=== PATIENT | female | born 1945 | race Caucasian/White ===

== ENCOUNTER 2017-06-03 23:57 | Emergency (ER) | payer MEDICARE, BC ==
[~2017-06-03] VITALS: Ht 165.1 cm; Wt 154.2 kg
[2017-06-04] MEDS ORDERED: NORCO 5-325 TA1 EACH PO (01:45)
[2017-06-04] MEDS ORDERED: LASIX20 MG PO (02:02)
[2017-06-04] MEDS ORDERED: POTASSIUM CHLO10 MEQ PO (02:02)
[2017-06-04] MEDS ORDERED: CYCLOBENZAPRINE10 MG PO (02:02)
--- NOTE | 2017-06-04 07:32 | EKG ---
[facility] [address] [facility] [place] [address] Signed Normal sinus rhythm Nonspecific ST and T wave abnormality Abnormal ECG No previous ECGs available Confirmed by KOKO PICKENS MD ([id number]) on 06/04/2017 7:32:49 AM Electronically Signed By: KOKO PICKENS MD 06/04/17 0732 PATIENT NAME: GOPAL TERRY Electrocardiogram DATE OF : 47 PHYSICIAN: KOKO PICKENS MD REPORT #: [id number] REPORT IS CONFIDENTIAL AND NOT TO BE RELEASED WITHOUT AUTHORIZATION
== END 2017-06-04 02:51 | disposition home or self-care (01) ==
LOC: ED 23:57
DX: M54.42 Lumbago with sciatica, left side (principal); R60.0 Localized edema; R03.0 Elevated blood-pressure reading, without diagnosis of hypertension; E66.01 Morbid (severe) obesity due to excess calories
CPT/HCPCS: 71020; 72100; 80053; 83880; 84484; 85025; 85379; 93005; 93010; 96374; 96375; 99283; J1170; J2405

== ENCOUNTER 2017-11-30 09:25 | Inpatient (IN) | payer MEDICARE, BC ==
[~2017-11-30] VITALS: Ht 165.1 cm; Wt 152.9 kg
[~2017-11-30 09:25] MED LIST: CYCLOBENZAPRINE10 MG PO; LASIX20 MG PO; NORCO 5-325 TA1 EACH PO; POTASSIUM CHLO10 MEQ PO
--- NOTE | 2017-11-30 14:00 | NUR ---
PT ARRIVED TO UNIT VIA STRETCHER. PT A&O AND PLEASANT. ESMOLOL DRIP GOING AT 50 MCG/KG/MIN INTO LFA IV, SITE WNL. PT DENIES SOB, CHEST DISCOMFORT, DIZZINESS. PT ASSISTED TO OBTAIN STANDING WEIGHT. PT ASSISTED BACK TO BED, HOB ELEVATED. WILL CONTINUE TO MONITOR VITAL AND TITRATE DRIP NEEDED.
--- NOTE | 2017-11-30 14:01 | NUR ---
I RECEIVED A CONSULT REQUEST FROM DR DISLA FOR PT. SHE HAS JUST RECENTLY SUFFERED THE LOSS OF HER DAUGHTER, AND HAS BEEN STRUGGLING WITH THE EMOTION ANGUISH OF HER LOSS. SHE WAS VERY OPEN WITH ME, AND IMMEDIATELY BEGAN TALKING ABOUT HER DAUGHTER. SHE IS STILL PROCESSING HER LOSS, AND THE EMOTIONAL DISTRESS I BELIEVE MAY BE ACCENTUIATING POSSIBLY SOME OF THE PHYSICAL ISSUES PT IS NOW FACING. I HAD PRAYER WITH PT, SHE SEEMED TO RELAX SOME, AND TOLD HER SHE IS BEING ADMITTED TO CCU, WHERE THEY WILL TAKE GOOD CARE OF HER AND SEE IF THERE IS ANYTHING WE NEED TO DISCOVER MEDICALLY. SHE SEEMED RELIEVED, AND A LITTLE WORRIED SOMEONE MIGHT SEE HER. RN ALMA ROSA GOT ANOTHER BLANKET, I EXPLAINED HOW SHE WILL ONLY BE GOING DOWN SERVICE PRATHER FOR PRIVACY. WILL FOLLOW NEEDED
--- NOTE | 2017-11-30 15:00 | NUR ---
ESMOLOL GTT TURNED UP TO 100 MCG/KG/MIN. HR REMAINING ELEVATED IN THE 130-160s, AFIB.
--- NOTE | 2017-11-30 15:27 | NUR ---
ESMOLOL GTT TURNED UP TO 150 MCG/KG/MIN. HR 140-150s AFIB.
--- NOTE | 2017-11-30 15:47 | NUR ---
ESMOLOL DRIP TITRATED DOWN TO 100 MCG/KG/MIN AT THIS TIME. BP 79/58, MAP 63, AND HR 140-150.
--- NOTE | 2017-11-30 16:08 | NUR ---
PT C/O CHEST PRESSURE, NO RADIATING, 09/05, STATES "IT FEELS LIKE INDIGESTION." PROVIDER AWARE. WILL CONTINUE TO MONITOR.
--- NOTE | 2017-11-30 16:15 | NUR ---
ESMOLOL DRIP TITRATED TO 150 MCG/KG/MIN AT THIS TIME
--- NOTE | 2017-11-30 17:37 | NUR ---
ESMOLOL GTT TITRATED UP TO 200 MCG/KG/MIN PER DR. DISLA'S VERBAL ORDER. PT'S BLOOD PRESSURE TOLERATING IT AT THIS TIME.
--- NOTE | 2017-11-30 17:52 | NUR ---
PT TOLERARTING INCREASED ESMOLOL TITRATION OF 200 MCG/KG/MIN. LAST BP 126/98, MAP 104, HR 134. WILL CONTINUE TO MONITOR.
--- NOTE | 2017-11-30 18:52 | NUR ---
ESMOLOL DRIP TITRATED DOWN TO 150 MCG/KG/MIN FOR BP OF 86/61.
--- NOTE | 2017-11-30 19:25 | NUR ---
ESMOLOL DRIP TITRATED TO 100 MCG/KG/MIN
--- NOTE | 2017-11-30 19:51 | NUR ---
PATIENT RESTING COMFORTABLY IN BED, BREATHING IS EVEN AND UNLABORED. PATIENT DENIES NEEDS AT THIS TIME. ESMOLOL GTT AT 100 MCG/KG/MIN. CALL LIGHT WITHIN REACH.
--- NOTE | 2017-11-30 20:45 | NUR ---
UPDATE GIVEN TO DR DISLA RE PT'S HR AND BP. BREVIBLOCK OFF AT 2024. ORDERS RECIEVED.
--- NOTE | 2017-11-30 21:03 | NUR ---
PATIENT GIVEN 5MG IV DILTIAZEM BOLUS PER EMAR, BP IS 128/64, HEART RATE 134. AFTER BOUS, HEART RATE NOW 132, BP OF 113/78, DILTIAZEM GTT STARTED AT 5MG/HR. PATIENT DENIES NEEDS AT THIS TIME, BREATHING IS EVEN AND UNLABORED. CALL LIGHT WITHIN REACH.
--- NOTE | 2017-11-30 21:11 | EKG ---
[facility] [address] [place] [address] Signed Atrial fibrillation with rapid ventricular response Low voltage QRS Nonspecific ST abnormality Abnormal QRS-T angle, consider primary T wave abnormality Abnormal ECG When compared with ECG of 04-JUN-2017 00:52, Atrial fibrillation has replaced Sinus rhythm Vent. rate has increased BY 81 BPM Nonspecific T wave abnormality no longer evident in Lateral leads Confirmed by SCOOTER DISLA MD ([id number]) on 11/30/2017 9:10:54 PM Electronically Signed By: SCOOTER DISLA MD 11/30/17 2111 PATIENT NAME: GOPAL TERRY Electrocardiogram DATE OF : 47 PHYSICIAN: SCOOTER DISLA MD REPORT #: [id number] REPORT IS CONFIDENTIAL AND NOT TO BE RELEASED WITHOUT AUTHORIZATION
--- NOTE | 2017-11-30 22:29 | NUR ---
PATIENT'S HEART RATE REMAINS AT 138, IV DIGOXIN GIVEN PER EMAR. PATIENT DENIES NEEDS AT THIS TIME. CALL LIGHT WITHIN REACH.
--- NOTE | 2017-12-01 00:37 | NUR ---
UPDATED DR. DISLA REGARDING PATIENT'S CONDITION.
--- NOTE | 2017-12-01 02:00 | NUR ---
PATIENT RESTING IN BED, BREATHING IS EVEN AND UNLABORED. PATIENT DENIES NEEDS AT THIS TIME. CALL LIGHT WITHIN REACH.
--- NOTE | 2017-12-01 04:17 | NUR ---
PATIENT RESTING IN BED, BREATHING IS EVEN AND UNLABORED. DENIES NEEDS AT THIS TIME. CALL LIGHT WITHIN REACH.
--- NOTE | 2017-12-01 08:52 | NUR ---
DR. DISLA IN TO ASSESS PT.
--- NOTE | 2017-12-01 09:06 | NUR ---
PT EATING BREAKFAST WITHOUT PROBLEMS, STATES BEING HUNGRY. ASSESSMENT COMPLETED.
--- NOTE | 2017-12-01 09:30 | NUR ---
ROUTINE MEDS GIVEN. UPDATED REPORT RECIEVED, WILL BE TAKING OVER NURSING CARE. ECHO BEING DNE AT BEDSIED.
--- NOTE | 2017-12-01 10:00 | NUR ---
ECHO COMPLETE. RESTFUL. DENEIS PAIN.
--- NOTE | 2017-12-01 11:05 | NUR ---
TOLERTATED TRANSFER TO CHAIR WELL. HR APPROX 100. DENEIS SHORTNESS OF BREATH OR DIZZINESS. STATES SHE IS FEELING MUCH BETTER TODAY.
--- NOTE | 2017-12-01 11:13 | NUR ---
THIS CHANNEL LIP STIFFENER INSOLES AND ASHLEY MCGHEE ASSISTED PATIENT WITH A BEDBATH. LOTION APPLIED OVER BODY DUE TO DRY SKIN. LINEN CHANGED. PATIENT IS NOW SITTING UP IN CHAIR. SHOWER CAP DONE. PATIENT TRANSFERRED 2 PERSON SBA. CALL LIGHT WITHIN REACH. NO OTHER NEEDS AT THIS TIME.
--- NOTE | 2017-12-01 12:07 | NUR ---
CARDIZEM GTT DECREASED TO 5 MG/HR. HR IN 70-90. REMAINS IN CHAIR.
--- NOTE | 2017-12-01 12:15 | NUR ---
ASSISSED PATIENT BACK TO BED. UPON RETURN TO BED, BECAME VERY DYSPNIC, ANXIOUS. UPON RETURN TO BED O2 SAT 88. AFTER APPROX 30 SECONDS TO 1 MIN SAT TO 94. AFTER IN BED FOR APPROX TWO MIN, STATES SHE IS DOING MUCH BETTER AND LESS SHORT OF BREATH. CARDIZEM DRIP CURRENTLY AT 5 MG/HR.
--- NOTE | 2017-12-01 12:45 | NUR ---
CARDIZEM GTT OFF. LOPRESSOR 100 MG PO GIVEN. BP-113/65.
--- NOTE | 2017-12-01 12:45 | NUR ---
CARDIZEM GTT TO OFF. LOPRESSOR 100 MG PO GIVEN. RESTFUL, DENIES PROBLEMS.
--- NOTE | 2017-12-01 14:19 | NUR ---
RESTFUL. VISITING WITH DARRIUS. DR. DISLA AWARE OF HR.
--- NOTE | 2017-12-01 14:20 | NUR ---
PT RESTING IN BED, SEEMED PLEASED THAT I CAME BY. PT MENTIONED THAT SHE HAS MADE A DECISION-SHE IS GOING TO MOVE TO [place] TO BE WITH HER OTHER DAUGHTER. PT HAS NOT YET LET HER SON IN LAW HERE KNOW COMPLETELY OF HER DECISION. IT SEEMED TO GIVE PT A REASON TO GET GOING-INCENTIVE TO GET BETTER. HAD PRAYER WITH PT, WILL FOLLOW NEEDED
--- NOTE | 2017-12-01 14:45 | NUR ---
REQUESTING TO AMBULATE. AMBULATED FROM ROOM 128 TO DOORWAY OF 129. TOLERATED WELL. HEART RATE TO 100. UPON RETURN TO BED SAT AT BEDSIDE. REMAINS SHORT OF BREATH WITH EXERTION.
--- NOTE | 2017-12-01 15:30 | NUR ---
AMBULATED AGAIN IN HALLWAY. TOLERATED WELL, THEN BACK TO BED. HR TO 120. EXTREMELY SHORT OF BREATH WHEN LAYING DOWN IN BED.
--- NOTE | 2017-12-01 15:54 | NUR ---
MED REC COMPLETE
--- NOTE | 2017-12-01 16:00 | NUR ---
ASSESSMENT DONE. PATIENT STATES SHE FEEL SHORT OF BREATH UP IN HER NECK. NO EXTRA SOUNDS HEARD IN NECK. LUNGS ARE CRACKLES IN BASES WITH DIMINISHED BREATH SOUNDS IN RIGHT LUNG. IS SOMEWAHT ANXIOUS AT TIMES. TALKING ABOUT HER DAUGHTER THAT OctoberOctober. EMOTIONAL NOW.
--- NOTE | 2017-12-01 17:27 | NUR ---
SITTING UP IN BED TO EAT DINNER.
--- NOTE | 2017-12-01 17:33 | NUR ---
TOOK DINNER WELL, DENIES PROBLEMS.
--- NOTE | 2017-12-01 18:13 | NUR ---
UP AMBULATING IN HALLWAY. TOLERATING MOVEMENT WELL. NOT SHORT OF BREATH AT THIS TIME EARLIER.
--- NOTE | 2017-12-01 18:48 | NUR ---
RESTFUL AT THIS TIME.
--- NOTE | 2017-12-01 23:00 | NUR ---
UPDATED DR. DISLA REGARDING PATIENT'S CONDITION. MD TO BE NOTIFIED IF HEART RATE REMAINS ABOVE 110 CONSISTENTLY. PATIENT'S HEART RATE CURRENTLY BETWEEN 90 AND 105, RESTING COMFORTABLY.
--- NOTE | 2017-12-02 00:30 | NUR ---
AWAKENED BY COUGHING. STATES IS FEELING MUCH BETTER.
--- NOTE | 2017-12-02 02:00 | NUR ---
PATIENT RESTING IN BED, BREATHING IS EVEN AND UNLABORED. NO NEEDS AT THIS TIME. CALL LIGHT WITHIN REACH.
--- NOTE | 2017-12-02 04:00 | NUR ---
PATIENT RESTING IN BED, BREATHING IS EVEN AND UNLABORED. CALL LIGHT WITHIN RREACH.
--- NOTE | 2017-12-02 06:04 | NUR ---
PATIENT ASSISTED TO BEDSIDE AND STANDING WEIGHT, TOLERATING WELL, NO SIGNIFICANT INCREASES IN SHORTNESS OF BREATH. PATIENT STATES "I AM FEELING MUCH BETTER THIS MORNING AFTER I GOT SOME SLEEP." NOW RESTING COMFORTABLY IN BED AGAIN, BREATHING IS EVEN AND UNLABORED. DENIES NEEDS AT THIS TIME. CALL LIGHT WITHIN REACH.
--- NOTE | 2017-12-02 07:30 | NUR ---
bedside report recieved. PATIENT IS RESTFUL IN BED.
--- NOTE | 2017-12-02 07:37 | NUR ---
PATIENT RESTING IN BED, RN IN ROOM. PATIENT DISCUSSED SHOWERING OPTIONS, THIS CONSUMER STUDIES PROFESSOR WILL DISCUSS WITH RN. PATIENT CALL LIGHT IN REACH. NO OTHER NEEDS AT THIS TIME.
--- NOTE | 2017-12-02 08:00 | NUR ---
ASSESSMENT DONE. DENIES PAIN. TALKED WITH PATIENT ABOUT PLAN OF CARE FOR DAY. IS UNDERSTANDING.
--- NOTE | 2017-12-02 08:15 | NUR ---
UP TO CHAIR FOR BREAKFAST. TRANSFERS WELL WITH LITTLE ASSIST. DENEIS SHORTNESS OF BREATH OR DIZZINESS.
--- NOTE | 2017-12-02 08:30 | NUR ---
TOOK BREAKBAST WELL. AMBULATED TO BR. NO BM. THEN BACK TO [facility]. STATES SHE FEELS TIRED TODAY.
--- NOTE | 2017-12-02 08:40 | NUR ---
150 OF FREE WATER CONSUMED WITH MEDS
--- NOTE | 2017-12-02 08:41 | NUR ---
THIS WIRELINE SUPERVISOR AND RN ASSISTED PATIENT UP TO BATHROOM, BACK TO BEDSIDE RECLINER. LINENS CHANGED. PATIENT WASHED HANDS AND FACE WITH WARM WASH CLOTH AND PERFORMED ORAL CARE. PATIENT GIVEN LEMON GLYCERIN SWABS. PATIENT CALL LIGHT IN REACH. NO OTHER NEEDS A THIS TIME.
--- NOTE | 2017-12-02 09:12 | NUR ---
THIS SEWER MAINTENANCE SUPERVISOR ASSISTED PATIENT UP TO WALK HALLWAYS. PATIENT WAS STEADY ON HER FEET AND WALKED APPROXIMATELY TO END OF HALLWAY NEAR ROOM 130 AND BACK TO BEDSIDE RECLINER. CALL LIGHT IN REACH. NO OTHER NEEDS AT THIS TIME.
--- NOTE | 2017-12-02 09:46 | NUR ---
DR. DISLA HERE TO SEE PATIENT. ORDERS RECIEVED.
--- NOTE | 2017-12-02 10:15 | NUR ---
PT RESTING COMFORTABLY AT THIS TIME; HR 80-100 WHILE SLEEPING
--- NOTE | 2017-12-02 10:39 | NUR ---
THIS RAILROAD CAR TRUCK BUILDER ASSISTED PATIENT WITH A WALK DOWN HALLWAY. PATIENT WALKED TO END OF HALLWAY, PATIENT STEADY ON FEET. PATIENT BACK IN BEDSIDE RECLINER, THIS RAILROAD CAR TRUCK BUILDER ASSISTED PATIENT WITH ORDERING LUNCH. PATIENT CALL LIGHT IN REACH. ÁNGEL EMPTIED AND DOCUMENTED. NO OTHER NEEDS AT THIS TIME.
--- NOTE | 2017-12-02 11:46 | NUR ---
SITTING UP IN CHAIR TO EAT LUNCH. VISITING WITH FAMILY MEMBERS. DENIES PROBLEMS.
--- NOTE | 2017-12-02 12:03 | NUR ---
PATIENT RESTING IN BEDSIDE RECLINER EATING LUNCH. FAMILY IN ROOM, VITALS TAKEN. CALL LIGHT IN REACH. NO OTHER NEEDS AT THIS TIME.
--- NOTE | 2017-12-02 12:33 | NUR ---
THIS STUDIO RECEPTIONIST ASSISTED PATIENT TO WALK HALLWAY AGAIN. PATIENT STEADY ON FEET. PATIENT BACK IN BEDSIDE RECLINER, RESTING. PATIENT CALL LIGHT IN REACH. NO OTHER NEEDS AT THIS TIME.
--- NOTE | 2017-12-02 13:43 | NUR ---
PATIENT RESTING IN BEDSIDE RECLINER, WAITING FOR PT. CALL LIGHT IN REACH. NO OTHER NEEDS AT THIS TIME.
--- NOTE | 2017-12-02 13:48 | NUR ---
PT SITTING UP IN CHAIR, ALERT AND ORIENTED. SHE SAID SHE IS FEELING GOOD, AND HAS EVEN GOTTEN UP FOR A WALK WITH STAFF. ENCOURAGED HER TO CONTINUE TO FOLLOW STAFF INSTRUCTIONS AND WORK TOWARDS HER GOALS EACH DAY. SHE SAID SHE IS COMMITED TO SUCCEEDING. SHE KNOWS SHE MUST BE STRONGER TO MOVE TO [place] WITH HER DAUGHTER. EXTENDED A BLESSING, WILL FOLLOW NEEDED
--- NOTE | 2017-12-02 14:20 | NUR ---
THIS PERSONAL LINES INSURANCE ADVISOR ASSISTED PATIENT TO WALK UP AND DOWN HALLWAYS FOR 6 MINUTES WITH PT. PT IN ROOM WITH PATIENT. NO OTHER NEEDS AT THIS TIMEE.
--- NOTE | 2017-12-02 15:29 | NUR ---
PATIENT RESTING IN BED, CALL LIGHT IN REACH. NO OTHER NEEDS AT THIS TIME.
--- NOTE | 2017-12-02 16:00 | NUR ---
ASSESSMENT UNCHNAGED. WHEN AMBULATING HR 110-130. DENIES SHORTNESS OF BREATH OR DIZZINESS.
--- NOTE | 2017-12-02 16:07 | NUR ---
PATIENT RESTING IN BED, CALL LIGHT IN REACH. VITALS TAKEN. DINNER ORDERED. NO OTHER NEEDS AT THIS TIME.
--- NOTE | 2017-12-02 17:00 | NUR ---
TEARY AT TIMES. SUPPORT GIVEN.
--- NOTE | 2017-12-02 17:38 | NUR ---
THIS BILLING AND QUALITY TECHNICIAN ASSISTED PATIENT UP TO WALK HALLWAYS, PATIENT TIRED EASILY, STATES HER FEET FELT SWOLLEN. PATIENT BACK IN BEDSIDE RECLINER, CALL LIGHT IN REACH. RN IN ROOM. NO OTHER NEEDS AT THIS TIME.
--- NOTE | 2017-12-02 18:49 | NUR ---
THIS DISTRICT HOME ECONOMICS AGENT ASSISTED PATIENT UP TO WALK HALLWAYS AND BACK TO BEDSIDE RECLINER. PATIENT RESTED IN BEDSIDE RECLINER. THIS DISTRICT HOME ECONOMICS AGENT AND RN ASSISTED PATIENT BACK TO BED. CALL LIGHT IN REACH. NO OTHER NEEDS AT THIS TIME.
--- NOTE | 2017-12-02 19:00 | NUR ---
restful. report to next shift.
--- NOTE | 2017-12-03 02:45 | NUR ---
PT SLEEPING AT THIS TIME
--- NOTE | 2017-12-03 06:08 | NUR ---
PT UP TO CHAIR AT THIS TIME, PT INCREASED WOB WITH MOVEMENT BUT DENIES SHORTNESS OF BREATH. FLATUS REPORTED BY PT AT THIS TIME
--- NOTE | 2017-12-03 07:30 | NUR ---
REPORT RECIEVED. PATIENT IS SITTING UP IN CHAIR DENEIS PROBLEMS.
--- NOTE | 2017-12-03 08:40 | NUR ---
AMBULATED TO BR TO HAVE LIQ STOOL. HR TO 130'S. IS W/O S/S.
--- NOTE | 2017-12-03 09:00 | NUR ---
OT HERE TO WORK WITH PATIENT.
--- NOTE | 2017-12-03 10:30 | NUR ---
HR THIS MORNING HAS BEEN >115 AT REST, AVERAGE HR120'S, AT TIME HR UP TO >140. PATIENT W/O SYMPTOMS. DR. PICKENS NOTIFIED.
--- NOTE | 2017-12-03 10:45 | NUR ---
DR. PICKENS HERE TO SEE PATIENT, ORDERS RECIEVED TO GIVE LOPRESSOR 5 MG IV LOPRESSOR, THIS DONE. VITAL SIGNS CHARTED.
--- NOTE | 2017-12-03 10:46 | NUR ---
LOPRESSOR 5 MG IV REPEATED HR REMAINS >120. AFTER LOPRESSOR GIVEN, [id number] FOR BRIEF TIME.
--- NOTE | 2017-12-03 11:53 | NUR ---
sitting in chair to eat lunch. denies problems. hr 110-130.
--- NOTE | 2017-12-03 12:53 | NUR ---
DR PICKENS CONSULTED WITH ME REGARDING PT'S GRIEF OVER THE LOSS OF HER DAUGHTER RECENTLY. PT AND I VISITED, SHE MENTIONED THAT TODAY IS KIND OF ATOUGH DAY. SHE HAS NOT YET GOTTEN UP TO WALK, IS IN CHAIR THOUGH. VERY PLEASANT AND SEEMS VERY GRATEFUL FOR CARE SHE HAS RECEIVED. PT GOT A PHONE CALL, WILL FOLLOW NEEDED
--- NOTE | 2017-12-03 13:47 | NUR ---
AMBULATED TO ROOM FROM 126. TOLERATED SHOWER WELL. HR-120 TO 140'S. WILL NOTIFY MD. MILD SHORTNESS OF BREATH. DINIES DIZZINEZZ IS FAIRLY STABLE ON FEET. USING WALKER WHEN AMBULATING.
--- NOTE | 2017-12-03 14:11 | NUR ---
DR. PICKENS IS AWARE OF HR SINCE MEDICATIONS GIVEN EARLIER. LABS TO BE DRAWN AT 1500 TODAY.
--- NOTE | 2017-12-03 14:40 | NUR ---
BACK TO BED, IS TIRED AND WISHES TO NAP. W/O S/S OF AFIB/RVR. [id number].
--- NOTE | 2017-12-03 15:02 | NUR ---
AIR PUMPER referral faxed to [facility]'s AIR PUMPER Jules to see patient within 48 hours if possible. Current insurance MCR so no prior authorizaiton required.
--- NOTE | 2017-12-03 16:00 | NUR ---
LAB RESULTS, K-3.5, MG-1.6. DR PICKENS AWARE, ORDERS RECIEVED.
--- NOTE | 2017-12-03 16:15 | NUR ---
ASSESMENT DONE. LUNGS CLEAR.
--- NOTE | 2017-12-03 17:49 | NUR ---
Jaelyn PAULSON.MAG JUAN SANCHEZ.
--- NOTE | 2017-12-04 07:19 | NUR ---
pt resting in chair watching tv. morning assessment complete. pt denies needs at this time. call light within reach.
--- NOTE | 2017-12-04 08:06 | NUR ---
PT UP TO BATHROOM FOR MORE CARE. PT INDEPENDENT IN MORNING ADL'S.
--- NOTE | 2017-12-04 08:10 | NUR ---
PTS HEART RATE INCREASED WITH ACTIVITY. HR IN THE 130'S-140'S. MD AWARE. ALL MORNING MEDICATIONS GIVEN.
--- NOTE | 2017-12-04 08:19 | NUR ---
IN ROOM WITH PTMinnie
--- NOTE | 2017-12-04 09:00 | NUR ---
Pt transfered from CCU to medical surgical floor via wheelchair. Pt oriented to room and call light. Pt denied further needs at this time. call light within reach.
--- NOTE | 2017-12-04 10:05 | NUR ---
Pt up and ambulating in hallway with physical therapy. HR in the 130's to 140's with activity.
--- NOTE | 2017-12-04 12:30 | NUR ---
PT UP TO BATHROOM, AMBULATING INDEPENDENTLY. PT GIVEN 20 MEQ POTASSIUM PER ORDER WITH APPLE SAUCE. PT REQUESTIGN WATER, PROVIDED WITH [facility] FREE WATER. PT DENIES OTHER NEEDS AT THIS TIME.
--- NOTE | 2017-12-04 14:10 | NUR ---
PT SITTING IN CHAIR. PT LUNG SOUNDS CLEAR WITH INSPIRATORY WHEEZE TO LEFT LOWER LOBE, DENIES SOB. PT BOWEL TONES ACTIVE, TOLERATING CARDIAC DIET, GIVEN EVENING FREE WATER, DISCUSSED FLUID RESTRICTION. PT WITH EDEMA TO BLE, 2+, PULSES PALPABLE, CMS INATCT. PT SALINE LOCKED, WNL. PT DENIES OTHER NEEDS AT THIS TIME.
--- NOTE | 2017-12-04 17:40 | NUR ---
PT SITTING IN CHAIR. PT GIVEN DINNER FREE WATER. PT GIVEN POTASSIUM PER ORDER. PT DENIES OTHER NEEDS AT THIS TIME.
--- NOTE | 2017-12-04 17:51 | NUR ---
PT TRANSFERED FROM CCU. ALERT/ORIENTED. PT ON ROOM AIR, LUNG SOUNDS CLEAR WITH INSPIRATORY WHEEZE TO LEFT SIDE. PT TOLERATING CARDIAC DIET, 1600 ML FLUID RESTRICTION. PT INDEPENDENT IN ROOM. TELE #1, AFIB HR 80'S-130'S. SALINE LOCKED. VOIDING QS, LAST BM YESTERDAY.
--- NOTE | 2017-12-04 19:38 | NUR ---
RECIEVED BEDSIDE REPORT FROM ACE RAMIREZ. PT UP IN CHAIR. SL IN LAC. REPORTS NO NEEDS AT THIS TIME. FLUID RESTRICTION IN PLACE. 250ML LEFT FOR THE NIGHT. CALL LIGHT WITHIN REACH.
--- NOTE | 2017-12-04 22:05 | NUR ---
ASSESSMENT COMPLETED. LUNGS CLEAR. HEART IRREGULAR. 2+ EDEMA BLE, GENERALIZED BUE. REPORTS NO PAIN. TELE #1. HR 98. SKIN IN DRY AND SCALING. CALL LIGHT WITHIN REACH. REPORTS NO OTHER NEEDS.
--- NOTE | 2017-12-04 23:49 | NUR ---
pt appears to be sleeping. respirations are equal and nonlabored. call light within reach.
--- NOTE | 2017-12-05 00:03 | NUR ---
pt oob to bathroom with fww. tolerated well. back to bed no other needs at this time. call light within reach
--- NOTE | 2017-12-05 02:04 | NUR ---
PT OOB TO BATHROOM. UNABLE TO SLEEP. WILL SIT UP IN CHAIR FOR A BIT. CALL LIGHT WITHIN REACH.
--- NOTE | 2017-12-05 02:50 | NUR ---
PT BACK TO BED TO TRY AND SLEEP. CALL LIGHT WITHIN REACH. HR UP TO 120 WITH ACTIVITY. NO RESPITORY DISTRESS. PT STABLE ON FEET USING WALKER. TELE [address]
--- NOTE | 2017-12-05 06:54 | NUR ---
SLEPT MOST THE NIGHT. GOT UP ONCE BECAUSE COULDNT SLEEP. TELE 1. HR 80-130. IV DC'D. 2+ EDEMA BLEDAILY WEIGHT WAS 337.1 FLUID RESTRICTION. INDIP IN ROOM. LUNGS CLEAR AND DIM IN BASES.
--- NOTE | 2017-12-05 08:00 | NUR ---
RECEIVED REPORT AT 0700, FOUND PT IN CHAIR READY TO EAT BREAKFAST. PT HAD NO CONCERNS AT THAT TIME.
[2017-12-05] MEDS ORDERED: DILTIAZEM 24HR240 M3 PO (09:45)
[2017-12-05] MEDS ORDERED: DIGOX125 MCG PO (09:45)
[2017-12-05] MEDS ORDERED: ELIQUIS5 MG PO (09:45)
[2017-12-05] MEDS ORDERED: FUROSEMIDE20 MG PO (09:45)
[2017-12-05] MEDS ORDERED: METOPROLOL SUC100 MG PO (09:45)
[2017-12-05] MEDS ORDERED: POTASSIUM CHLO20 ME1 PO (09:46)
--- NOTE | 2017-12-05 09:55 | NUR ---
HR IS STILL 90'S -120'S. IS AWARE. OTHER V/S ARE WDL. EDEMA BILATERAL LOWER LEGS +2, SOME GENERAL EDEMA BILATERAL ARMS. ALL LOBES ARE CLEAR. FLUID RESTRICTION IN PLACE. NO NEW CONCERNS FOR THIS PT.
--- NOTE | 2017-12-05 11:18 | NUR ---
PT IS READY FOR D/C. EDUCATION PROVIDED, PT VERBALIZED UNDERSTANDING. V/S WDL.
--- NOTE | 2017-12-05 11:34 | NUR ---
WENT TO SEE PATIENT FOR THERAPY TREATMENT BUT NSG STATED THAT PATIENT WAS CURRENTLY BEING DISCHARGED FROM HOSPITAL AND RETURNING HOME. NO THERAPY TREATMENT PERFORMED TODAY. REVIEWED SKILLED THERAPY NOTES FROM YESTERDAY AND PATIENT SAFE TO RETURN HOME.
== END 2017-12-05 11:50 | disposition home or self-care (01) | DRG 308 ==
LOC: ED 09:25 → CCU 12:58 → MS 12-04 09:07
PROVIDERS: ADMIT Internal Medicine
DX: I48.0 Paroxysmal atrial fibrillation (principal); I50.31 Acute diastolic (congestive) heart failure; F43.20 Adjustment disorder, unspecified
CPT/HCPCS: 36415; 71045; 80048; 80053; 80061; 80162; 81001; 82550; 82553; 82803; 83036; 83735; 83874; 83880; 84443; 84484; 85025; 85379; 93005; 93010; 93306; 94668; 97110; 97116; 97162; 97166; 97530; 97535; J1160; J1650; J2060; J3475; J3480